=== PATIENT | male | born 1980 ===

== ENCOUNTER 2016-05-15 07:46 | Day surgery (SDC) | payer OTHER ==
[2016-05-09 08:09] VITALS: BMI 29.9
[2016-05-15] MEDS ORDERED: Propofol 10 mg/ml Inj (20 ML) ONE ×2 (09:44→09:51)
[2016-05-15 10:12] VITALS: TEMP 98.2
[2016-05-15 10:27] VITALS: O2SAT 99
[2016-05-15 11:01] VITALS: BP 111/64; PULSE 58; RESP 18
== END 2016-05-15 11:19 | disposition home or self-care (01) ==
LOC: ENDO 07:46
PROVIDERS: ATTEND Internal Medicine Gastroenterology
DX: K29.50 Unspecified chronic gastritis without bleeding (principal); K21.9 Gastro-esophageal reflux disease without esophagitis; R10.13 Epigastric pain; R19.6 Halitosis; B96.81 Helicobacter pylori [H. pylori] as the cause of diseases classified elsewhere
CPT/HCPCS: 43239; 88305; 88342; J2704; J3010; J7040